=== PATIENT | female | born 1965 | race Caucasian/White ===

== ENCOUNTER 2023-01-28 11:08 | Outpatient (CLI) | payer OTHER, SELFPAY ==
--- NOTE | 2023-01-28 08:45 | DI.RAD_ITS ---
Exam(s) XR KNEE RT 4V AP,LAT,PARAMJIT,PAT EXAM: XR KNEE RT 4V AP,LAT,PARAMJIT,PAT CLINICAL HISTORY: worsening R knee pain. TECHNIQUE: 2D digital imaging was performed. Three views. COMPARISON: CR from 02/25/2022 FINDINGS: BONES: No acute fracture is present. No bony destructive lesion is seen. JOINTS: Moderate narrowing medial femoral tibial joint space. Mild periarticular spurring noted thro ughout. Mild spurring lateral patellofemoral joint. The knee is normally aligned. No joint effusion is seen. SOFT TISSUE: Normal. IMPRESSION: Moderate degenerative changes of the medial femoral tibial joint. DATA REPOSITORY: RADIATION DOSE DELIVERED:
== END 2023-01-28 11:09 | disposition home or self-care (01) ==
LOC: DIORS 11:11
PROVIDERS: PCP Family Medicine; Referring Provider Family Medicine; Visit Provider Student in an Organized Health Care Education/Training Program
DX: M25.561 Pain in right knee (principal); M17.11 Unilateral primary osteoarthritis, right knee
CPT/HCPCS: 73564

== ENCOUNTER 2023-02-18 03:28 | Outpatient (CLI) | payer OTHER, SELFPAY ==
[2023-02-18 10:37] LABS: HCT 41.8 % (36.0-46.0); HGB 13.3 g/dL (11.2-15.7); MCH 28.2 pg (27.0-33.0); MCHC 31.8 % (32.0-36.0); MCV 89 fL (80-95); MPV 10.9 fL (8.0-11.0); Platelet Count 362 10^3/uL (130-400); RBC 4.72 10^6/uL (3.93-5.22); RDW 14.3 % (11.7-14.6); RDW-SD 45.8 fL; WBC 13.53 10^3/uL (4.4-10.8)
[2023-02-18 11:04] LABS: Anion Gap 6.4 mmol/L (3-11); BUN 21 mg/dL (7-18); CO2 31.6 mmol/L (21.0-32.0); CREATININE 0.9 mg/dL (0.55-1.02); Calcium 9.1 mg/dL (8.5-10.1); Chloride 100 mmol/L (98-107); Estimated GFR 73.64 (mL/min/1.73m2); Glucose 104 mg/dL (74-106); Potassium 3.3 mmol/L (3.5-5.1); Sodium 138 mmol/L (136-145)
[2023-02-18 11:09] LABS: ALT 26 U/L (14-59); AST 16 U/L (15-37); Albumin 3.6 g/dL (3.4-5.0); Alkaline Phosphatase 111 U/L (46-116); Bilirubin, Direct 0.1 mg/dL (0.0-0.2); Bilirubin, Total 0.3 mg/dL (0.2-1.0); Total Protein 7.8 g/dL (6.4-8.2)
== END 2023-02-18 03:29 | disposition home or self-care (01) ==
LOC: LBO 03:28
PROVIDERS: Physician Assistant; PCP Family Medicine; Visit Provider Student in an Organized Health Care Education/Training Program
DX: M25.561 Pain in right knee (principal); M17.11 Unilateral primary osteoarthritis, right knee; Z01.818 Encounter for other preprocedural examination; Z01.812 Encounter for preprocedural laboratory examination
CPT/HCPCS: 36415; 80048; 80076; 85027

== ENCOUNTER 2023-02-18 10:43 | Outpatient (CLI) | payer OTHER, SELFPAY ==
--- NOTE | 2023-02-18 08:45 | DI.RAD_ITS ---
Exam(s) XR STANDING ALIGNMENT EXAM: XR STANDING ALIGNMENT CLINICAL HISTORY: TKR Planning. TECHNIQUE: 2D digital imaging was performed. COMPARISON: CR from 02/25/2022 CR XR KNEE RT 4V AP,LAT,PARAMJIT,PAT from 01/28/2023 FINDINGS: 3 views There is moderate narrowing of the medial compartment of the right knee. Medial compartment of the l eft knee appears unremarkable as do the lateral compartments of both knees. Hips appear un remarkabl e. Ankles unremarkable. Bone density normal. No osseous lesions. IMPRESSION: Moderate narrowing of the medial compartment of the right knee noted. DATA REPOSITORY: RADIATION DOSE DELIVERED:
== END 2023-02-18 10:44 | disposition home or self-care (01) ==
LOC: DIORS 10:44
PROVIDERS: PCP Family Medicine; Referring Provider Family Medicine; Visit Provider Physician Assistant
DX: M17.11 Unilateral primary osteoarthritis, right knee (principal); M25.561 Pain in right knee
CPT/HCPCS: 77073

== ENCOUNTER 2023-02-23 08:21 | Day surgery (SDC) | payer OTHER, SELFPAY ==
[2023-02-23] VITALS (10 sets, daily range): BP systolic 109–138; BP diastolic 52–73; PULSE 72–83; RESP 10–19; TEMP 36.1–36.5; O2SAT 94–98; BMI 45.1
--- NOTE | 2023-02-23 07:22 | W.PM.DSUDISC ---
Date of service: 02/23/23 Time of Service: 07:29 Discharge Plan Disposition Patient Disposition: Home Condition: Good Discharge Details Reason For Visit: Right knee DJD Attending Provider: Franck Vora Primary Care Provider: Cindy Collins Home Meds and New Rx's Prescriptions: New celecoxib [Celebrex] 200 mg capsule 200 mg PO BID PRNQty: 60 0RF Rx Instructions: Take one tablet twice daily for pain and inflammation aspirin 81 mg tablet,delayed release (DR/EC) 81 mg PO BID 30 Days Qty: 60 0RF acetaminophen 500 mg tablet 1,000 mg PO Q8H PRN Qty: 90 0RF Rx Instructions: Take two tablets up to every 8 hours as needed for pain pantoprazole 40 mg tablet,delayed release (DR/EC) 40 mg PO DAILY 30 Days Qty: 30 0RF dexamethasone 4 mg tablet 4 mg PO DAILY Qty: 2 0RF Rx Instructions: Take one tablet once daily for two days docusate sodium [Colace] 100 mg capsule 100 mg PO BID Qty: 30 0RF oxycodone 5 mg tablet 5 mg PO Q4H PRNQty: 18 0RF Rx Instructions: Take one tablet up to every 4 hours as needed for severe postoperative pain Continued albuterol 90 mcg/actuation aerosol 90 mcg inhalation DIRECTED cetirizine 10 mg tablet 10 mg PO DAILY PRN cholecalciferol (vitamin D3) 50 mcg (2,000 unit) capsule 50 mcg PO DAILY cyanocobalamin (vitamin B-12) 1,000 mcg tablet 1,000 mcg PO DAILY famotidine 20 mg tablet 20 mg PO DAILY losartan 100 mg tablet 100 mg PO DAILY triamterene-hydrochlorothiazid 37.5-25 mg tablet 1 tab PO DAILY Discharge Instructions Additional Instructions: Total Knee Discharge Instructions Activity: The most important activity is to walk and to work on gentle motion (both flexion and extension). You should try to take short walks a few times a day. It is important that when resting you work on keeping the knee straight. Avoid putting a pillow behind the knee as this will encourage flexion. Work on range of motion exercises as provided by Physical Therapy. - Start outpatient physical therapy within 2 weeks. - You should wear the MAKAYLA hose on both legs for 2 weeks. You may remove these at night. You may also use any compression sock in place of the MAKAYLA hose. - Utilize [employer] to review exercises, see videos on exercises and obtain basic information pertaining to your surgery and your recovery. Dressing: Remove the Abran wrap by 2 days after your surgery and put on the MAKAYLA stocking given to you from the hospital. Keep the surgical dressing (underneath the ABRAN wrap) in place for at least one week. After the first week it may be removed and replaced with light gauze and tape or nothing. The wound and dressing may get wet after 3 days but avoid soaking the dressing or otherwise it will need to be changed. Many people prefer covering the dressing with cling wrap (saran wrap) to minimize it from getting soaked. If it gets wet, just pat dry. If it starts to peel off then it will need to be changed. Medications: - You should take Tylenol and anti-inflammatory Celebrex as your primary pain control medications. If the Celebrex is too expensive or not covered, please call the office for another alternative (Advil/Ibuprofen or Naproxen/Aleve) - You have been prescribed a stronger pain medication Oxycodone for breakthrough pain, take as needed as prescribed. - You have also been prescribed a stomach acid reduction agent Pantoprozole to help reduce stomach acid and reflux. - You have been prescribed Gabapentin to take at night for restlessness and nerve pain. - You will be taking Aspirin 81mg twice a day for DVT prevention unless instructed otherwise. - You have also been prescribed Decadron to take to control post-operative nausea and pain. You will start this tomorrow. - If you have constipation you should take Colace (which has been prescribed) or Miralax (which is available [id number]). It takes most people 3-4 days to have a bowel movement. Follow-up: 2 weeks If you have any acute concerns or questions, please do not hesitate to contact the office at [phone]. You may contact Dr. Vora with any questions after hours through the hospital at [phone] or on his cell phone at [phone]. Stand Alone Forms: Anesthesia Discharge Inst., Galo.Nerve Block Instructions, Amparo Kraus ([facility]) Referrals: Franck Vora MD [ [facility] STAFF PHYSICIAN] - Equipment/Supplies: Walker Activity:: Elevate Remove Dressings/Wound Care:: Do Not Remove Shower/Bathe:: Cover Diet:: As Tolerated Discharge Orders Discharge Orders: Discharge Order (Routine); Ordered 02/23/23 Ordered By: Franck Vora
[2023-02-23] MEDS: Celecoxib 200 MG CAP 400 MG PO (09:20)
[2023-02-23] MEDS: Gabapentin 300 MG CAP PO (09:20)
[2023-02-23] MEDS: Acetaminophen 500 MG TAB 1000 MG PO (09:20)
--- NOTE | 2023-02-23 09:44 | ANES.PREOP_ITS ---
General Info Date of Service Date Performed: 02/23/23 Height: 5 ft 2 in Weight: 112.037 kg Body Mass Index (BMI): 45.1 Surgical Procedure: Operation Date: 02/23/23 11:25 Proposed Procedure Side Surgeon p Knee Total Arthroplasty, Cementless CR Right Franck Vora MD Meds Allergies and Home Medications Allergies Allergy/AdvReac Type Severity Reaction Status Date / Time corn Allergy skin Verified 02/23/23 09:03 irritation egg Allergy skin Verified 02/23/23 09:03 irritation Latex, Natural Rubber Allergy rash Verified 02/23/23 09:03 shellfish derived Allergy Hives Verified 02/23/23 09:03 spinach Allergy Verified 02/23/23 09:03 strawberry Allergy Verified 02/23/23 09:03 green beans Allergy Other (See Uncoded 02/23/23 09:03 Comment) erythromycin AdvReac Severe Other (See Uncoded 02/23/23 09:03 Comment) trazodone AdvReac Intermediate irritabilit Uncoded 02/23/23 09:03 y Home Medication Medication Instructions Recorded albuterol 90 mcg/actuation aerosol 90 mcg inhalation DIRECTED 11/26/22 inhaler cetirizine 10 mg tablet 10 mg PO DAILY PRN 11/26/22 cholecalciferol (vitamin D3) 50 50 mcg PO DAILY 11/26/22 mcg (2,000 unit) capsule cyanocobalamin (vitamin B-12) 1,000 mcg PO DAILY 11/26/22 1,000 mcg tablet famotidine 20 mg tablet 20 mg PO DAILY 11/26/22 losartan 100 mg tablet 100 mg PO DAILY 11/26/22 triamterene 37.5 1 tab PO DAILY 11/26/22 mg-hydrochlorothiazide 25 mg tablet acetaminophen 500 mg tablet 1,000 mg PO Q8H PRN pain #90 tabs 02/23/23 aspirin 81 mg tablet,delayed 81 mg PO BID 30 days #60 tabs 02/23/23 release celecoxib 200 mg capsule (Celebrex) 200 mg PO BID PRN #60 caps 02/23/23 dexamethasone 4 mg tablet 4 mg PO DAILY #2 tabs 02/23/23 docusate sodium 100 mg capsule 100 mg PO BID #30 caps 02/23/23 (Colace) oxycodone 5 mg tablet 5 mg PO Q4H PRN #18 tabs 02/23/23 pantoprazole 40 mg tablet,delayed 40 mg PO DAILY 30 days #30 tabs 02/23/23 release Current Visit Medications: Current Medications Generic Name Dose Route Start Last Admin Trade Name Fatou PRN Reason Stop Dose Admin Acetaminophen 1,000 mg 02/23/23 06:00 02/23/23 09:20 Acetaminophen 500 Mg Tab PO 02/23/23 18:00 1,000 mg PREOP CARRIE Administration Celecoxib 400 mg 02/23/23 06:00 02/23/23 09:20 Celecoxib 200 Mg Cap PO 02/23/23 18:00 400 mg PREOP CARRIE Administration Docusate Sodium 100 mg 02/23/23 07:17 Docusate Sodium 100 Mg Cap PO BID PRN PRN Constipation Gabapentin 300 mg 02/23/23 06:00 02/23/23 09:20 Gabapentin 300 Mg Cap PO 02/23/23 18:00 300 mg PREOP CARRIE Administration Hydromorphone HCl 0.5 mg 02/23/23 07:17 Hydromorphone 2 Mg/Ml Syr IVP Q2H PRN PRN Tranexamic Acid 1,000 mg/ 60 mls @ 360 mls/hr 02/23/23 06:00 Sodium Chloride IVPB 02/23/23 18:00 PREOP CARRIE Ringer's Solution 1,000 mls @ 80 mls/hr 02/23/23 06:00 IV 03/24/23 23:59 INFUSION CARRIE Cefazolin Sodium/Dextrose 2 gm in 50 mls @ 100 mls/hr 02/23/23 06:00 Ancef Duplex IVPB 02/23/23 16:00 PREOP CARRIE IV Miscellaneous Supplies 1 each 02/23/23 06:00 Iv Access IV 03/24/23 23:59 DIRECTED CARRIE Oxycodone HCl 0 mg 02/23/23 07:17 Oxycodone 5 Mg Tab PO Q3H PRN PRN Pain Sodium Chloride 0 ml 02/23/23 06:00 Normal Saline Flush 10 Ml Syr IV 03/24/23 23:59 PRN PRN Sodium Chloride 0 ml 02/23/23 06:00 Normal Saline 10 Ml Vial IJ 03/24/23 23:59 DIRECTED PRN Sterile Water 0 ml 02/23/23 06:00 Water,Injection,Sterile 10 Ml Vial IJ 03/24/23 23:59 DIRECTED PRN PFSH Active Problems Active Problems: Problem Status Onset Code Hypertension I10 Lung nodule R91.1 Localized osteoarthritis of right knee M17.11 Medical History Medical History (Updated 02/23/23 @ 09:01 by Estela Hopkins) Autoimmune hepatitis GERD (gastroesophageal reflux disease) History of basal cell carcinoma History of skin cancer Seborrheic dermatitis Thoracic outlet syndrome Medical History Comments:: per preop screening: Per pt. states she has had a hard time with anesthesia taking, second had a hard time taking, and came out very fast Surgical History Surgical History (Updated 02/23/23 @ 09:01 by Estela Hopkins) Hx of section x2 1991, 1997 Hx of colonoscopy Tobacco Smoking/Tobacco Use Status: Never Alcohol Alcohol Intake: current Alcohol intake frequency: a few times a month Substance Use Substance use: Never Substance use type: does not use Vital Signs and Lab Results Vital Signs Most Recent Vital Signs in EMR: Most Recent Vital Signs Temp Pulse Resp BP Pulse Ox 36.3 C L 83 16 127/69 95 02/23/23 08:40 02/23/23 08:40 02/23/23 08:40 02/23/23 08:40 02/23/23 08:40 Lab Results Blood Type / Crossmatch: No Data to Display Complete Blood Count: White Blood Count 13.53 10^3/uL (4.4-10.8) H 02/18/23 10:27 Red Blood Count 4.72 10^6/uL (3.93-5.22) 02/18/23 10:27 Hemoglobin 13.3 g/dL (11.2-15.7) 02/18/23 10:27 Hematocrit 41.8 % (36.0-46.0) 02/18/23 10:27 Platelet Count 362 10^3/uL (130-400) 02/18/23 10:27 Complete Metabolic Panel: Sodium 138 mmol/L (136-145) 02/18/23 10:27 Potassium 3.3 mmol/L (3.5-5.1) L 02/18/23 10:27 Chloride 100 mmol/L (98-107) 02/18/23 10:27 Carbon Dioxide 31.6 mmol/L (21.0-32.0) 02/18/23 10:27 BUN 21 mg/dL (7-18) H 02/18/23 10:27 Creatinine 0.9 mg/dL (0.55-1.02) 02/18/23 10:27 Est GFR (CKD-EPI 2020) 73.64 (mL/min/1.73m2) 02/18/23 10:27 Calcium 9.1 mg/dL (8.5-10.1) 02/18/23 10:27 Albumin 3.6 g/dL (3.4-5.0) 02/18/23 10:27 Glucose 104 mg/dL (74-106) 02/18/23 10:27 Liver Function Panel: Alanine Aminotransferase (ALT/SGPT) 26 U/L (14-59) 02/18/23 10: 27 Aspartate Amino Transf (AST/SGOT) 16 U/L (15-37) 02/18/23 10:27 Coagulation Panel: No Data to Display Cardiac Panel: No Data to Display Arterial Blood Gas: No Data to Display Venous Blood Gas: No Data to Display Pancreas Panel: No Data to Display Thyroid Panel: No Data to Display Infectious Disease: No Data to Display Blood Cultures: No Data to Display Toxicology Panel: No Data to Display Anesthesia Assessment and Plan Anesthesia History Personal History: Other Family History: No Family History of Anesthesia Complications Exercise Tolerance Exercise Tolerance: Metabolic Equivalents>4 Pertinent Negatives Pertinent Negatives: No Symptoms of GERD and No Major Cardiovascular Symptoms or Complaints Cardiac & Pulmonary Exam Cardiac Exam: Normal S1/S2 Heart Sounds Pulmonary Exam: Clear Bilateral Breath Sounds Implantable Cardiac Device Does patient have a Pacemaker or an ICD?: No Airway Exam Known Difficult Airway: No Mallampati Class: 1 Mouth Opening: Normal (> 3cm) Thyromental Distance: Greater than 3 cm Neck Range of Motion: Full ROM Neck Circumference: Normal Teeth Condition: Normal Dentition ASA Classification ASA Score: ASA 3 Emergency Case?: No NPO Status NPO Status: NPO Clears >2 hours, Solids >8 hours Anesthesia Plan Resuscitation Status: Full Code Anesthesia Technique: Spinal Anesthesia Airway Planned: Natural Airway Pain Management: Surgeon and patient request nerve block Monitors Used: Standard Monitors
[2023-02-23] MEDS: Lactated Ringers 1,000 ML 80 ML IV (09:50)
[2023-02-23] MEDS: ceFAZolin 2 GM/50 ML BAG IVPB (10:19)
--- NOTE | 2023-02-23 10:47 | W.ANESNERVE ---
Nerve Block Single Injection Procedure Date and Time Date Performed: 02/23/23 Procedure Start: 10:10 Location Where Procedure Performed Procedure Location: Day Surgery Unit Reason Performed: Postoperative Analgesia Requesting Provider: Franck Vora Timeout Performed Timeout Performed: Yes Monitoring Used ECG, Blood Pressure, SpO2 and See EMR for corresponding vital signs Sterility Sterility: Hand Hygiene, Surgical Cap, Surgical Mask, Sterile Gloves and Chlorhexidine Sedation Given During Procedure Sedation Given (Indicate Dose Given): No Sedation given Patient Mental Status Patient Mental Status: Awake Nerve Block 1st Nerve Block: Laterality: Right Block Type: Adductor Canal Ultrasound Image Saved?: Yes Needle / Catheter Used: 120mm SonoPlex II Local Anesthetic Bolus (Indicate Dose Given): Lidocaine used for local infiltration of skin, Injected in 3-5ml increments after negative blood aspiration and Bupivacaine 0.25% Dose:: 20ml Additives (Indicate Dose Given): None Ultrasound: Sterile probe cover and gel used Nerve Stimulator: Not Used Paresthesia: None Procedure Tolerated: No Complications and Patient tolerated well Procedure Outcome: Successful Performed By: Rafa Will
--- NOTE | 2023-02-23 12:30 | ROE_ITS ---
Date of service: 02/23/23 Time of Service: 12:00 Operative Note Operative Note DATE OF PROCEDURE: 02/23/23 PRE-OP DIAGNOSIS: Right Knee Osteoarthritis POST-OP DIAGNOSIS: same PROCEDURE: Right Total Knee Replacement with Intraoperative Navigation SURGEON: Franck Vora ANESTHESIA TYPE: Spinal Refer to Anesthesia Record ESTIMATED BLOOD LOSS: 50 PATHOLOGY: none sent TOURNIQUET TIME: 0 COMPLICATIONS: None Patient was transported to: PACU Patient's condition: stable Implants: 1. Depuy Attune Cementless Cruciate Retaining Femoral Component, Size 5 2. Depuy Attune Cementless Fixed Platform Tibial Component, Size 4 3. Depuy Attune 5x5 CR/FB Poly 4. Depuy Attune Patellar Component, Size 35 Indications: I have seen Martita in clinic for symptoms of RIGHT knee arthritis, confirmed with radiographic findings. Martita has exhausted nonoperative methods and was having significant limitations in daily function and desired better function and less pain. I discussed the technical details of a knee replacement. I explained the risks of the procedure to include, but not limited to, bleeding, infection, pain, stiffness, fracture, damage to nerves and vessels, damage to muscles and tendons, loosening, need for repeat procedure, blood clot and cardiopulmonary demise. Despite these risks, she elected to proceed. Findings: There was significant signs of arthritis throughout the knee. Procedure Description: Martita was greeted in the preoperative holding area where the correct side was identified and marked. The consent was reviewed with the patient and signed. The history and physical was updated. All questions were answered. Preoperative mediacations were administered: Acetaminophen 1000mg, Celebrex 400mg, and Gabapentin 300mg. An adductor canal block was then administered by the anesthesia team in the PACU. Martita was taken back to the operating room. A spinal anesthestic was then administered. The patient was placed into the supine position on the operating room table. A nonsterile tourniquet was placed high onto the leg. Posts were placed for positioning during the procedure. All bony prominences were well padded. Prophylactic antibiotics in the form of Cefazolin were administered. 1g of Tranxemic Acid was given intravenously within 30 minutes of incision. The right leg was then prepped with Chloraprep and draped in a standard fashion with impervious stockinette. A second prep with Chloraprep was performed prior to application of Iodine impregnated skin protection. A timeout to confirm correct identity, side and site, procedure, allergies, anesthesia, and medical concerns was performed. With the knee in some flexion, a midline incision was made overlying the knee. Full thickness skin flaps were raised once the extensor mechanism was encountered. These were raised medially and laterally. Any bleeding was controlled with electrocautery. Once the extensor mechanism was fully exposed, a medial parapatellar arthrotomy was performed in a flexed position. All bleeding from the arthrotomy and the geniculate arteries was coagulated. A medial subperiosteal peel was performed with electrocautery to the midcoronal plane. The fat pad was removed while keeping the patellar tendon protected. The anterior distal femur synovium was removed for later visualization. The ACL and PCL were resected and the anterior horn of the lateral meniscus was transected. The knee was then flexed with the patella everted. Large osteophytes from the tibia were removed. Large osteophytes from the femur were removed. A single starting pin was then placed 1cm anterior to the PCL insertion and the notch in the direction of the femoral head. The OrthoAlign device was applied over the pin. It was oriented to be in line with the epicondylar axis and the trochlear groove. It was then pinned into place. The navigation computer was then turned on and calibrated. The distal femur cut was set at 0 degrees varus/valgus and 3 degrees flexion. The distal femur cutting guide then was positioned for a 9mm cut. The distal femur was cut with an oscillating saw while protecting the soft tissues. The tibia was then addressed. The OrthoAlign device was placed over the tibial tubercle and medial tibia and secured into position. Once again, OrthoAlign was calibrated and then set for a 2 degrees varus cut and 5 degrees of posterior slope. With this locked into position, the cut thickness stylus was used to assess cut thickness. The medial side, most involved side, was set for a 4mm cut. This was then held in position and pinned into place with 2 additional pins and a cross pin for stability. The medial and lateral collateral ligaments were protected and the cut was performed. With this completed, it was assessed and noted to be of appropriate dimensions. The guide and OrthoAlign was removed. A spacer block was inserted and the knee was brought into extension to ensure enough space was present. The femur was then sized as a size 5. The Orthoalign gap balancing device was then placed in extension. This was used to ensure that the ligaments were properly balanced with up to 2 to 3 mm laxity laterally compared medially. The extension gap was measured as 15mm. The knee was then brought into 90 degrees of flexion and the ligament litigation examiner was once again placed. Under the same amount of force the flexion gap was measured. The Attune specific jig was placed and the flexion gap was made to match the extension gap. The 4-in-1 cutting guide was the placed. An china wing was used to confirm appropriate position of the anterior cut to avoid notching. This cutting guide was ensured to be flush on the cut surface and then pinned into place with headed pins. While protecting the soft tissues, quad tendon, and collateral ligaments, the anterior and posterior cuts were performed with a saw. There was a slight notch into the anterior cortex laterally which was smoothed with a rongeur and a rasp. The central two pins were removed and the posterior and anterior chamfers were cut next. The notch-cutting guide was placed. This was pinned to lateralize the femoral component as much as possible while keeping it flush on the cut surface. This was then pinned into position. A saw was used to make the notch cut. A rasp smoothed the cut surfaces. The medial and lateral menisci were removed. A trial femoral component was then inserted, impacted down to the cut surfaces, and the lug holes were drilled. A provisional trial tibial component was placed and the knee was brought through range of motion. There was noted to be excellent extension and flexion. There was no significant instability. The patella was tracking without thumbs. A size 5mm polyethylene component provided the best range of motion and stability with less than 2mm gapping with medial and lateral stress and full extension without significant hyperextension. The tibial cut surface was fully exposed. The tibia was then sized as a 4. The tibia had been previously marked during trialing to correspond to the center of the tibial component to help with rotation. The trial was aligned to this yrn, approximately rotated to the medial 1/3rd of the tibial tubercle. The trial was pinned into place. The tibia was prepared with a reamer and a keel punch and lug holes. The knee was then brought into extension and the patella was measured as 24mm. Using the patellar clamp and cut guide, this was resected to a flat surface with at least 13mm of thickness remaining. The size 35 patella fit the best. This was oriented and then clamped into position. The lugs were drilled. The trial components were removed. The final components were opened on the back table. The periosteal and capsular tissues, especially posteriorly, around the knee were then systematically injected with a periarticular cocktail consisting of 246mg of Ropivacaine, 0.5mg of Epinephrine, 0.08mg of Clonidine, and 30mg of Ketorolac, diluted to 100cc. On the back table, with the implants opened, the cement was mixed. One batch of high viscosity cement was prepared with vacuum assistance. After the cement was ready a small amount was placed on the cut surface of the patella and the patellar button was clamped into position and held. While the cement was hardening, the cementless knee components were placed. Starting with the tibial component, the tibia was subluxed anteriorly and the lug holes of the component were lined up. The tibia was then impacted with an impactor and mallet until the tibial component was in contact with the tibia. The final polyethylene component was inserted. Then, the femoral component was inserted. The lug holes were aligned and the component was impacted into position. The knee was irrigated with Surgiphor Betadine solution. This was allowed to sit in the knee for 3 minutes and then it was thoroughly irrigated out with saline. After the cement had finally cured, approximately 15min, the clamp was removed from the patella and the knee was taken through range of motion. The patella was tracking with a no-thumbs technique. The capsule was then reapproximated with a No. 1 Vicryl at multiple locations. The capsule was finally closed with a No. 2 Stratafix, barbed suture. Deep tissues were then reapproximated with 0 Vicryl and 2-0 Monocryl. The skin was closed with a running 3-0 Monocryl in a subcuticular fashion. This was reinforced with skin glue. A Mepilex silver dressing was applied along with a [id number] EBEN wrap. A CryoCuff was applied. Martita was transferred to the hospital bed without difficulty an suffering no apparent complication. Martita has a good prognosis. Physical therapy will start today and without restrictions, weight-bearing as tolerated. Aspirin 81mg BID will be used for DVT prophylaxis.
--- NOTE | 2023-02-23 13:13 | W.ANESPOSTOP ---
Postoperative Evaluation Date, Time and Location Date Performed: 02/23/23 Time Performed: 13:13 Patient Location: PACU Vital Signs Most Recent Imported Vital Signs: Most Recent Vital Signs Temp Pulse Resp BP Pulse Ox 36.5 C 74 10 L 118/64 98 02/23/23 12:50 02/23/23 12:50 02/23/23 12:50 02/23/23 12:50 02/23/23 12:50 Pain Score Most Recent Pain Score: Most Recent Pain Score Pain Level 0 02/23/23 12:50 Assessment Mental Status: Awake (Alert & Oriented to Patient Baseline) Airway and Respiratory Function: Patent airway with normal (patient baseline) respiratory exam Cardiovascular Function: Hemodynamically Stable Hydration Status: Adequately Hydrated Nausea & Vomiting: No Nausea or Vomiting Pain: Pt. Denies Any Pain Peripheral Nerve Block: Regional nerve block not resolved at time of post operative discharge
[2023-02-23] MEDS: oxyCODONE 5 MG TAB PO (14:42)
--- NOTE | 2023-02-23 15:52 | IN_ITS ---
Date of service: 02/23/23 Time of Service: 15:06 PT Notes Visit Reasons: Right knee DJD Physical Therapy Day Surgery Initial Evaluation Date: 02/23/2023 Referring Doctor: JONATHAN Mishra PT Orders: PT CONSULT: S/P ortho Surgery Precautions: WBAT on the R LE with AD. 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 PMHX: Medical History? Autoimmune hepatitis GERD (gastroesophageal reflux disease) History of basal cell carcinoma Seborrheic dermatitis Thoracic outlet syndrome Social History/Home Situation: Lives with in a private home with 10 steps to enter with one rail and a wall for support on the other side. She is independent with all ADLs prior to surgery but was having increasing difficulty to manage at home due to worsening pain. Equipment Owned/DME: [facility] Subjective: Reports minimal pain in the R knee with AD. Denies headache, chest pain, and lightheadedness throughout session. Objective: General Observation: Seated on chair. EBEN wrap to R LE. Cryocuff to R knee. In NAD. Mental Status: Alert and oriented x 4 Pain: 2-3/10 pain in the R knee gentle range of motion and with ambulation ROM: Right Lower Extremity: Hip flexion WFL. Hip abduction WFL. Knee flexion 20 degrees to 95 degrees. Knee extension -20 degrees. Ankle dorsiflexion WFL. Ankle plantarflexion WFL. Left Lower Extremity: Hip flexion WFL. Hip abduction WFL. Knee flexion WFL. Ankle dorsiflexion WFL. Ankle plantarflexion WFL. Strength: Right Lower Extremity: Hip flexors 4/5. Hip abductors 4/5. Knee flexors 3-/5. Knee extensors 3-5. Ankle dorsiflexors 5/5. Ankle plantarflexors 5/5. Left Lower Extremity:Hip flexors 5/5. Hip abductors 5/5. Knee flexors 5/5. Knee extensors 5/5. Ankle dorsiflexors 5/5. Ankle plantarflexors 5/5. Sensation: Intact as to pain and light pressure in B LE Bed Mobility/Transfers: Sit to stand stand by assist Stand to sit stand by assist Bed to chair stand by assist Gait: 150 feet of level surface ambulation using front wheeled walker with standby assist. Provided minimal verbal cueing for step through gait pattern, walker management, and turning. No loss of balance. No shortness of breath. No increase in pain. Balance: Static Sitting: Normal Dynamic Sitting: Normal Static Standing: Fair Dynamic Standing: Fair Special Tests: Mobility Limitations Standardized Measure [facility] AM-PAC 6 clicks Basic Mobility Inpatient Short Form: Raw Score: 23 CMS Score: 11 to deficit NEURO RE-ED: Trained patient with correct performance of exercises below to maximize motor control, joint flexibility, soft tissue extensibility of the R knee musculature. Supine quads sets x 5 with 5 sh Supine heels lsides x 5 Supine ankle Df/PF x 10 Small range stariagt leg raise x 5 Seated marches x 5 Informed Consent/Education: Patient instructed in purpose of PT consult. Packet containing TKA exercise protocol has been given to patient. Education and training on initial set of exercises that can be done at home have been completed with patient. Assessment: Patient requires the use of a front wheel walker to maximize independence and reduce fall risk. Patient presents with clinical signs and symptoms consistent with current/admitting diagnoses that have resulted to mobility limitations, gait instability, generalized weakness, and impairment of motor control as demonstrated by the following impairment level findings: 1. Decreased strength to R knee major muscle groups 2. Impaired standing balance 3. Limitation of joint range of motion in R knee Impairments are contributing to the following functional limitations: 1. Inability to safely ambulate without assistive device 2. Increase completion time for mobility ADL performance 3. Increased fall risk Patient is assessed as a 61981 moderate complexity based on the following: History: 57-year-old female with impairment level findings, functional limitations, and past medical history as indicated above Examination: Demonstrable impairment in strength, balance, and mobility level with underlying impairments and functional limitations as documented above Presentation: Evolving Decision Makin moderate complexity Goals: N/A. PT evaluation and 1-2 treatment sessions only for functional mobility training using recommended AD and for HEP instruction. Plan of Care/Treatment Plan: N/A. PT evaluation and 1-2 treatment session only for functional mobility training using recommended AD and for HEP instruction. DISCHARGE RECOMMENDATIONS: Home when medically cleared by orthopedic surgeon. Recommend outpatient PT services in order to optimize functional mobility outcomes and facilitate return to independent community ambulation without an assistive device. TREATMENT CODE/TIME: 9716 2 x 20 minutes, 53428 x 19 minutes beginning at 15:06 PM. Thank you for the opportunity to participate in the care of this patient. Smita Garcia PT, DPT, CLT [facility] [place], [place]
== END 2023-02-23 16:40 | disposition home or self-care (01) ==
PROVIDERS: PCP Family Medicine; Visit Provider Student in an Organized Health Care Education/Training Program
PROC: (CPT 27447; principal; 2023-02-23 11:15)
DX: M17.11 Unilateral primary osteoarthritis, right knee (principal); I10 Essential (primary) hypertension; K21.9 Gastro-esophageal reflux disease without esophagitis
CPT/HCPCS: 27447; 20985; 76942; 97112; 97162; J0690; J1100; J2250; J2405

== ENCOUNTER 2023-03-08 13:41 | Outpatient (CLI) | payer OTHER, SELFPAY ==
--- NOTE | 2023-03-08 13:00 | DI.RAD_ITS ---
Exam(s) XR KNEE RT 1V XR STANDING ALIGNMENT EXAM: XR STANDING ALIGNMENT CLINICAL HISTORY: 1ST POST OP R TKA. TECHNIQUE: 2D digital imaging was performed. Five images were obtained. COMPARISON: CR XR STANDING ALIGNMENT from 02/18/2023 FINDINGS: BONES: The hips are well maintained. Since the prior examination the patient has undergone a right t otal knee replacement. The orthopedic hardware appears in good position. The bones are intact. The re is soft tissue swelling around the right knee. The left knee is well maintained. The ankles are well maintained.There is no significant leg length discrepancy. SOFT TISSUE: Normal. IMPRESSION: 1. Right total knee replacement. 2. Unremarkable left knee. DATA REPOSITORY: RADIATION DOSE DELIVERED:
== END 2023-03-08 13:42 | disposition home or self-care (01) ==
LOC: DIORS 13:41
PROVIDERS: PCP Family Medicine; Visit Provider Physician Assistant
DX: Z96.651 Presence of right artificial knee joint (principal); Z47.1 Aftercare following joint replacement surgery
CPT/HCPCS: 73560; 77073

== ENCOUNTER 2023-05-11 10:16 | Day surgery (SDC) | payer OTHER, SELFPAY ==
[2023-05-11] VITALS (7 sets, daily range): BP systolic 125–135; BP diastolic 57–70; PULSE 72–81; RESP 12–21; TEMP 36.1–36.6; O2SAT 13–98; BMI 43.7
[2023-05-11] MEDS: Lactated Ringers 1,000 ML 80 ML IV (11:02)
--- NOTE | 2023-05-11 12:11 | W.ANESPRE ---
General Info Date of Service Date Performed: 05/11/23 Height: 5 ft 2 in Weight: 108.5 kg Body Mass Index (BMI): 43.7 Surgical Procedure: Operation Date: 05/11/23 13:25 Proposed Procedure Side Surgeon p Knee Manipulation of Knee Right Franck Vora MD Meds Allergies and Home Medications Allergies Allergy/AdvReac Type Severity Reaction Status Date / Time corn Allergy skin Verified 05/11/23 10:41 irritation egg Allergy skin Verified 05/11/23 10:41 irritation Latex, Natural Rubber Allergy rash Verified 05/11/23 10:41 shellfish derived Allergy Hives Verified 05/11/23 10:41 spinach Allergy Verified 05/11/23 10:41 strawberry Allergy Hives Verified 05/11/23 10:41 green beans Allergy Other (See Uncoded 05/11/23 10:41 Comment) erythromycin AdvReac Severe Other (See Uncoded 05/11/23 10:41 Comment) trazodone AdvReac Intermediate irritabilit Uncoded 05/11/23 10:41 y Home Medication Medication Instructions Recorded albuterol 90 mcg/actuation aerosol 90 mcg inhalation DIRECTED 11/26/22 inhaler cetirizine 10 mg tablet 10 mg PO DAILY PRN 11/26/22 cholecalciferol (vitamin D3) 50 50 mcg PO DAILY 11/26/22 mcg (2,000 unit) capsule cyanocobalamin (vitamin B-12) 1,000 mcg PO DAILY 11/26/22 1,000 mcg tablet famotidine 20 mg tablet 20 mg PO DAILY 11/26/22 losartan 100 mg tablet 100 mg PO DAILY 11/26/22 triamterene 37.5 1 tab PO DAILY 11/26/22 mg-hydrochlorothiazide 25 mg tablet acetaminophen 500 mg tablet 1,000 mg PO Q8H PRN pain #90 tabs 02/23/23 diazepam 5 mg tablet 5 mg PO BID PRN muscle spasm #20 03/22/23 tabs celecoxib 200 mg capsule (Celebrex) 200 mg PO DAILY PRN pain, 05/03/23 inflammation #60 caps multivitamin 1 tab PO DAILY 05/10/23 Current Visit Medications: Current Medications Generic Name Dose Route Start Last Admin Trade Name Freq PRN Reason Stop Dose Admin Ringer's Solution 1,000 mls @ 80 mls/hr 05/11/23 06:00 05/11/23 11:02 IV 06/09/23 23:59 80 mls/hr INFUSION CARRIE Administration IV Miscellaneous Supplies 1 each 05/11/23 06:00 Iv Access IV 06/09/23 23:59 DIRECTED CARRIE Sodium Chloride 0 ml 05/11/23 06:00 Normal Saline Flush 10 Ml Syr IV 06/09/23 23:59 PRN PRN Sodium Chloride 0 ml 05/11/23 06:00 Normal Saline 10 Ml Vial IJ 06/09/23 23:59 DIRECTED PRN Sterile Water 0 ml 05/11/23 06:00 Water,Injection,Sterile 10 Ml Vial IJ 06/09/23 23:59 DIRECTED PRN PFSH Active Problems Active Problems: Problem Status Onset Code Hypertension I10 Lung nodule R91.1 History of total right knee replacement 02/23/23 Z96.651 Arthrofibrosis of total knee arthroplasty T84.82XA Medical History Medical History Autoimmune hepatitis GERD (gastroesophageal reflux disease) History of basal cell carcinoma History of skin cancer Seborrheic dermatitis Thoracic outlet syndrome Medical History Comments:: per preop screening: Per pt. states she has had a hard time with anesthesia taking, second had a hard time taking, and came out very fast Surgical History Surgical History (Updated 05/11/23 @ 10:40 by Nevin Medley) History of knee replacement Hx of section x2 1991, 1997 Hx of colonoscopy Tobacco Smoking/Tobacco Use Status: Never Alcohol Alcohol Intake: current Alcohol intake frequency: a few times a month Substance Use Substance use: Never Substance use type: does not use Vital Signs and Lab Results Vital Signs Most Recent Vital Signs in EMR: Most Recent Vital Signs Temp Pulse Resp BP Pulse Ox 36.2 C L 76 16 125/70 98 05/11/23 10:20 05/11/23 10:20 05/11/23 10:20 05/11/23 10:20 05/11/23 10:20 Lab Results Blood Type / Crossmatch: No Data to Display Complete Blood Count: No Data to Display Complete Metabolic Panel: No Data to Display Liver Function Panel: No Data to Display Coagulation Panel: No Data to Display Cardiac Panel: No Data to Display Arterial Blood Gas: No Data to Display Venous Blood Gas: No Data to Display Pancreas Panel: No Data to Display Thyroid Panel: No Data to Display Infectious Disease: No Data to Display Blood Cultures: No Data to Display Toxicology Panel: No Data to Display Anesthesia Assessment and Plan Anesthesia History Personal History: Awareness Under Anesthesia and Other Family History: No Family History of Anesthesia Complications Exercise Tolerance Exercise Tolerance: Metabolic Equivalents>4 Pertinent Negatives Pertinent Negatives: No Symptoms of GERD (Takes Pepcid) Cardiac & Pulmonary Exam Cardiac Exam: Normal S1/S2 Heart Sounds Pulmonary Exam: Clear Bilateral Breath Sounds Implantable Cardiac Device Does patient have a Pacemaker or an ICD?: No Airway Exam Known Difficult Airway: No Mallampati Class: 1 Mouth Opening: Normal (> 3cm) Thyromental Distance: Greater than 3 cm Neck Range of Motion: Full ROM Neck Circumference: Normal Teeth Condition: Normal Dentition ASA Classification ASA Score: ASA 3 Emergency Case?: No NPO Status NPO Status: NPO Clears >2 hours, Solids >8 hours Anesthesia Plan Resuscitation Status: Full Code Anesthesia Technique: General Anesthesia Airway Planned: Natural Airway Monitors Used: Standard Monitors
[2023-05-11] MEDS: Bupivacaine 0.5% Pres-Free 30 ML VIAL (13:44)
--- NOTE | 2023-05-11 13:49 | W.PM.DSUDISC ---
Date of service: 05/11/23 Time of Service: 13:49 Discharge Plan Disposition Patient Disposition: Home Condition: Good Discharge Details Reason For Visit: Right Knee Arthrofibrosis Attending Provider: Franck Vora Primary Care Provider: Cindy Collins Home Meds and New Rx's Prescriptions: New oxycodone 5 mg tablet 5 mg PO Q6H PRN (Reason: pain) Qty: 12 0RF Continued albuterol 90 mcg/actuation aerosol 90 mcg inhalation DIRECTED cetirizine 10 mg tablet 10 mg PO DAILY PRN cholecalciferol (vitamin D3) 50 mcg (2,000 unit) capsule 50 mcg PO DAILY cyanocobalamin (vitamin B-12) 1,000 mcg tablet 1,000 mcg PO DAILY famotidine 20 mg tablet 20 mg PO DAILY losartan 100 mg tablet 100 mg PO DAILY triamterene-hydrochlorothiazid 37.5-25 mg tablet 1 tab PO DAILY multivitamin Tablet 1 tab PO DAILY celecoxib [Celebrex] 200 mg capsule 200 mg PO DAILY PRN (Reason: pain, inflammation) Qty: 60 0RF Rx Instructions: Take one tablet once daily for pain and inflammation acetaminophen 500 mg tablet 1,000 mg PO Q8H PRN Qty: 60 0RF Rx Instructions: Take two tablets up to every 8 hours as needed for pain diazepam 5 mg tablet 5 mg PO BID PRN (Reason: muscle spasm) Qty: 10 0RF Discharge Instructions Additional Instructions: Knee Manipulation Discharge Instructions Activity: You should begin moving as soon as possible. You may work on flexion but also equally maintain extension. You may bear weight as tolerated, using crutches only for support/comfort. You should apply ice to help with swelling and elevate when possible (especially in the first few days). Dressings: The knee bandaid may be removed later tonight. You may shower and get the wound wet at that time. Medications: - Rarely does this require any stronger pain medications,but it is important to have good pain control if needed for range of motion exercises. For this, Oxycodone has been prescribed. - Recommend to take up to 1000mg of Acetaminophen (Tylenol) every 8 hours and 200mg of Celebrex twice a day as needed. Follow-up: 7-[address] Vora's team. Tomorrow with PT. Referrals: Franck Vora MD [ [facility] STAFF PHYSICIAN] - Equipment/Supplies: Walker Activity:: Activity as Tolerated Remove Dressings/Wound Care:: 24 hours Shower/Bathe:: 24 hours Diet:: As Tolerated Discharge Orders Discharge Orders: Discharge Order (Routine); Ordered 05/11/23 Ordered By: Franck Vora DS: Diagnosis Discharge Diagnosis (1) Arthrofibrosis of total knee arthroplasty: Status: Acute
--- NOTE | 2023-05-11 14:06 | W.ANESPOSTOP ---
Postoperative Evaluation Date, Time and Location Date Performed: 05/11/23 Time Performed: 14:06 Patient Location: PACU Vital Signs Most Recent Imported Vital Signs: Most Recent Vital Signs Temp Pulse Resp BP Pulse Ox 36.6 C 80 21 125/60 19 L 05/11/23 13:52 05/11/23 13:52 05/11/23 13:52 05/11/23 13:52 05/11/23 13:52 Pain Score Most Recent Pain Score: Most Recent Pain Score Pain Level 0 05/11/23 13:52 Assessment Mental Status: Awake (Alert & Oriented to Patient Baseline) Airway and Respiratory Function: Patent airway with normal (patient baseline) respiratory exam Cardiovascular Function: Hemodynamically Stable Hydration Status: Adequately Hydrated Nausea & Vomiting: No Nausea or Vomiting Pain: Pain is tolerable per patient Peripheral Nerve Block: Patient did not receive a nerve block
[2023-05-11] MEDS: oxyCODONE 5 MG TAB PO (15:01)
--- NOTE | 2023-05-11 16:30 | ROE_ITS ---
Date of service: 05/11/23 Time of Service: 13:15 Operative Note Operative Note DATE OF PROCEDURE: 05/11/23 PRE-OP DIAGNOSIS: Right knee Arthrofibrosis s/p Replacement POST-OP DIAGNOSIS: same PROCEDURE: Right knee Manipulation Under Anesthesia SURGEON: Franck Vora ANESTHESIA TYPE: General:No Airway Refer to Anesthesia Record ESTIMATED BLOOD LOSS: 0 PATHOLOGY: none sent TOURNIQUET TIME: 0 COMPLICATIONS: None Patient was transported to: PACU Patient's condition: stable Indications: Martita is a 58-year-old female who is s/p knee replacement. Despite diligent work with physical therapy there has been continued stiffness. To assist with mobility, I offered a manipulation under anesthesia. I discussed the risks of the procedure to include bleeding, pain, recurrent stiffness, fracture. Despite these risks, she elects to proceed. Findings: Preoperative flexion = 85 Postoperative flexion = 115 Preoperative extension = 0 Postoperative extension = 0 Procedure Description: The patient was greeted in the preoperative holding area. Identity was confirmed and the correct side was identified and marked. The consent was reviewed the patient and signed. History and physical was updated. Martita was taken back to the operating room. The right side was identified as the correct side. A timeout was performed for safe surgery. A general anesthetic was administered. The knee was then prepped with ChloraPrep and an intra-articular injection of 10 cc of 0.5% bupivacaine was administered. Once a muscle relaxant was fully on board manipulation was performed. Pre- manipulation range of motion was noted. A gentle manipulation was performed first into flexion using a very small lever arm and adding gentle and progressive pressure to the tibia. There is audible and palpable crepitus with improvement in range of motion. This was cycled and repeated multiple times. The knee was once again manipulated with gentle and progressive pressure. Final range of motion numbers were recorded. A Band-Aid was applied to the injection site. She was awakened from anesthesia and taken to the PACU in stable condition.
== END 2023-05-11 15:47 | disposition home or self-care (01) ==
PROVIDERS: PCP Family Medicine; Visit Provider Student in an Organized Health Care Education/Training Program
PROC: (CPT 27570; principal; 2023-05-11 13:15)
DX: T84.82XA Fibrosis due to internal orthopedic prosthetic devices, implants and grafts, initial encounter (principal); Z96.651 Presence of right artificial knee joint
CPT/HCPCS: 27570; J1100; J1885; J2250; J2405

== ENCOUNTER 2023-08-16 15:21 | Outpatient (CLI) | payer OTHER, SELFPAY ==
--- NOTE | 2023-08-16 15:15 | DI.RAD_ITS ---
Exam(s) XR HIP RT COMPLETE AP PELVIS EXAM: XR HIP RT COMPLETE AP PELVIS CLINICAL HISTORY: RIGHT HIP PAIN. TECHNIQUE: 2D digital imaging was performed. COMPARISON: No exams were available for comparison FINDINGS: Two views: There is no evidence of pelvic nor hip fracture. Additional lateral view of the right hip reveals no joint space narrowing nor marginal femoral head osteophytes. Calcific densities noted adjacent to t he greater trochanter, doubtful for acute fracture. IMPRESSION: No acute fractures. DATA REPOSITORY: RADIATION DOSE DELIVERED:
== END 2023-08-16 15:22 | disposition home or self-care (01) ==
LOC: DIORS 15:21
PROVIDERS: PCP Family Medicine; Visit Provider Student in an Organized Health Care Education/Training Program
DX: M25.551 Pain in right hip (principal)
CPT/HCPCS: 73502

== ENCOUNTER 2024-03-30 16:03 | Outpatient (CLI) | payer OTHER, SELFPAY ==
--- NOTE | 2024-03-30 14:58 | DI.RAD_ITS ---
Exam(s) XR KNEE RT 3V AP,LAT,PARAMJIT EXAM: XR KNEE RT 3V AP,LAT,PARAMJIT CLINICAL HISTORY: right knee pain. TECHNIQUE: 2D digital imaging was performed. Three images were obtained. Merchant's, AP and lateral views were obtained. COMPARISON: CR XR KNEE RT 4V AP,LAT,PARAMJIT,PAT from 01/28/2023 CR XR KNEE RT 1V from 03/08/2023 CR XR STANDING ALIGNMENT from 03/08/2023 FINDINGS: BONES: There are stable post operative changes of a right total knee replacement present. No fractur e or dislocation. JOINTS: The orthopedic hardware is in good position. No evidence of hardware loosening. SOFT TISSUE: Normal. IMPRESSION: Stable right total knee replacement. DATA REPOSITORY: RADIATION DOSE DELIVERED:
== END 2024-03-30 16:04 | disposition home or self-care (01) ==
LOC: DIORS 16:03
PROVIDERS: PCP Family Medicine; Visit Provider Student in an Organized Health Care Education/Training Program
DX: Z96.651 Presence of right artificial knee joint (principal); Z47.1 Aftercare following joint replacement surgery
CPT/HCPCS: 73562

== ENCOUNTER 2024-05-10 08:02 | Day surgery (SDC) | payer OTHER, SELFPAY ==
[2024-05-10] VITALS (24 sets, daily range): BP systolic 102–148; BP diastolic 60–76; PULSE 64–83; RESP 10–27; TEMP 36.2–36.5; O2SAT 90–98; BMI 44.6
[2024-05-10] MEDS: Lactated Ringers 1,000 ML 80 ML IV (08:43)
[2024-05-10] MEDS: Acetaminophen 500 MG TAB 1000 MG PO (08:44)
[2024-05-10] MEDS: Celecoxib 200 MG CAP 400 MG PO (08:44)
--- NOTE | 2024-05-10 08:48 | W.ANESPRE ---
General Info Date of Service Date Performed: 05/10/24 Height: 5 ft 1.5 in Weight: 108.8 kg Body Mass Index (BMI): 44.6 Surgical Procedure: Operation Date: 05/10/24 09:40 Proposed Procedure Side Surgeon p Knee Arthroscopy Synovectomy Right Franck Vora MD Pre-Op Diagnosis Post-Op Diagnosis (1) History of total right knee replacement (2) Arthrofibrosis of total knee arthroplasty Meds Allergies and Home Medications Allergies Allergy/AdvReac Type Severity Reaction Status Date / Time corn Allergy skin Verified 05/10/24 08:15 irritation egg Allergy skin Verified 05/10/24 08:15 irritation Latex, Natural Rubber Allergy rash Verified 05/10/24 08:15 shellfish derived Allergy Hives Verified 05/10/24 08:15 spinach Allergy Other (See Verified 05/10/24 08:15 Comment) strawberry Allergy Hives Verified 05/10/24 08:15 green beans Allergy Other (See Uncoded 05/10/24 08:15 Comment) erythromycin AdvReac Severe Other (See Uncoded 05/10/24 08:15 Comment) trazodone AdvReac Intermediate irritabilit Uncoded 05/10/24 08:15 y Home Medication Medication Instructions Recorded albuterol 90 mcg/actuation aerosol 90 mcg inhalation DIRECTED 11/26/22 inhaler cetirizine 10 mg tablet 10 mg PO DAILY PRN 11/26/22 cholecalciferol (vitamin D3) 50 50 mcg PO DAILY 11/26/22 mcg (2,000 unit) capsule cyanocobalamin (vitamin B-12) 1,000 mcg PO DAILY 11/26/22 1,000 mcg tablet famotidine 20 mg tablet 20 mg PO DAILY 11/26/22 losartan 100 mg tablet 100 mg PO DAILY 11/26/22 triamterene 37.5 1 tab PO DAILY 11/26/22 mg-hydrochlorothiazide 25 mg tablet multivitamin 1 tab PO DAILY 05/10/23 acetaminophen 500 mg tablet 1,000 mg (2 x 500 mg) PO Q8H PRN 05/11/23 pain #60 tabs diazepam 5 mg tablet 5 mg PO BID PRN muscle spasm #10 05/11/23 tabs triamcinolone acetonide 0.1 % 1 applic topical BID PRN rash #30 07/22/23 topical cream grams cephalexin 500 mg capsule 2,000 mg (4 x 500 mg) PO ONCE #4 09/24/23 caps Current Visit Medications: Current Medications Generic Name Dose Route Start Last Admin Trade Name Fatou PRN Reason Stop Dose Admin Acetaminophen 1,000 mg 05/10/24 06:00 05/10/24 08:44 Acetaminophen 500 Mg Tab PO 06/08/24 23:59 1,000 mg PREOP CARRIE Administration Celecoxib 400 mg 05/10/24 06:00 05/10/24 08:44 Celecoxib 200 Mg Cap PO 06/08/24 23:59 400 mg PREOP CARRIE Administration Ringer's Solution 1,000 mls @ 80 mls/hr 05/10/24 06:00 05/10/24 08:43 IV 06/08/24 23:59 80 mls/hr INFUSION CARRIE Administration Cefazolin Sodium 3,000 mg/ 100 mls @ 200 mls/hr 05/10/24 06:00 Sodium Chloride IVPB 06/08/24 23:59 PREOP CARRIE Tranexamic Acid/Sodium Chloride 1,000 mg in 100 mls @ 600 mls/hr 05/10/24 06:00 IVPB 06/08/24 23:59 PREOP CARRIE IV Miscellaneous Supplies 1 each 05/10/24 06:00 Iv Access IV 06/08/24 23:59 DIRECTED CARRIE Sodium Chloride 0 ml 05/10/24 06:00 Normal Saline Flush 10 Ml Syr IV 06/08/24 23:59 PRN PRN Sodium Chloride 0 ml 05/10/24 06:00 Normal Saline 10 Ml Vial IJ 06/08/24 23:59 DIRECTED PRN Sterile Water 0 ml 05/10/24 06:00 Water,Injection,Sterile 10 Ml Vial IJ 06/08/24 23:59 DIRECTED PRN PFSH Active Problems Active Problems: Problem Status Onset Code Pes anserinus bursitis of right knee M70.51 Trochanteric bursitis, right hip M70.61 Iliotibial band syndrome of right side M76.31 Hypertension I10 Lung nodule R91.1 History of total right knee replacement 02/23/23 Z96.651 Arthrofibrosis of total knee arthroplasty T84.82XA Medical History Medical History Autoimmune hepatitis GERD (gastroesophageal reflux disease) History of basal cell carcinoma History of skin cancer Seborrheic dermatitis Thoracic outlet syndrome Medical History Comments:: per preop screening: Per pt. states she has had a hard time with anesthesia taking, second had a hard time taking, and came out very fast Surgical History Surgical History History of knee replacement Hx of section x2 1991, 1997 Hx of colonoscopy Tobacco Smoking/Tobacco Use Status: Never Alcohol Alcohol Intake: current Alcohol intake frequency: a few times a month Substance Use Substance use: Never Substance use type: does not use Vital Signs and Lab Results Vital Signs Most Recent Vital Signs in EMR: Most Recent Vital Signs Temp Pulse Resp BP Pulse Ox 36.5 C 83 16 148/67 H 95 05/10/24 08:39 05/10/24 08:39 05/10/24 08:39 05/10/24 08:39 05/10/24 08:39 Lab Results Blood Type / Crossmatch: No Data to Display Complete Blood Count: No Data to Display Complete Metabolic Panel: No Data to Display Liver Function Panel: No Data to Display Coagulation Panel: No Data to Display Cardiac Panel: No Data to Display Arterial Blood Gas: No Data to Display Venous Blood Gas: No Data to Display Pancreas Panel: No Data to Display Thyroid Panel: No Data to Display Infectious Disease: No Data to Display Blood Cultures: No Data to Display Toxicology Panel: No Data to Display Anesthesia Assessment and Plan Anesthesia History Personal History: Awareness Under Anesthesia (awoke during TKA with spinal on board) Family History: No Family History of Anesthesia Complications Exercise Tolerance Exercise Tolerance: Metabolic Equivalents>4 Pertinent Negatives Pertinent Negatives: No Symptoms of GERD (controlled with meds, took today), No Major Cardiovascular Symptoms or Complaints, No Major Pulmonary Symptoms or Complaints and No History of CVA/TIA Cardiac & Pulmonary Exam Cardiac Exam: Normal S1/S2 Heart Sounds Pulmonary Exam: Clear Bilateral Breath Sounds Implantable Cardiac Device Does patient have a Pacemaker or an ICD?: No Airway Exam Known Difficult Airway: No Mallampati Class: 1 Mouth Opening: Normal (> 3cm) Thyromental Distance: Greater than 3 cm Neck Range of Motion: Full ROM Neck Circumference: Normal Teeth Condition: Normal Dentition ASA Classification ASA Score: ASA 3 Emergency Case?: No NPO Status NPO Status: NPO Clears >2 hours, Solids >8 hours Anesthesia Plan Resuscitation Status: Full Code Anesthesia Technique: General Anesthesia Airway Planned: LMA Monitors Used: Standard Monitors and SedLine
[2024-05-10] MEDS: ceFAZolin 3,000 MG in Normal Saline 100 ML 200 MG IVPB (10:20)
--- NOTE | 2024-05-10 10:20 | W.PREOPHP ---
Assessment and Plan Assessment and plan (1) Arthrofibrosis of total knee arthroplasty: Status: Acute Assessment and plan: Martita is a 59 year old female who is s/p R TKA. SHe has struggled with range of motion and stiffness. She is been diagnosed with arthrofibrosis. I have offered arthroscopic synovectomy of the knee. I discussed this procedure with her. I reviewed the risk to include bleeding, infection, pain, continued stiffness, swelling, blood clot. Spite these risk, she elects to proceed. History of Present Illness History of Present Illness Chief Complaint: Right KNee Pain and Stiffness Narrative: Martita is a 59-year-old female who is status post right knee replacement. Unfortunate she is struggle with stiffness, lack of range of motion, and some pain. She had a few episodes of tissue rupturing within the knee which has helped out slightly but still continues to have the symptoms. She denies numbness or tingling. Denies fevers or chills. Review of Systems All systems reviewed & are unremarkable except as noted in HPI and below PFSH All Active Problems (Updated 05/10/24 @ 10:23 by JONATHAN Hollins) Pes anserinus bursitis of right knee (Acute) Trochanteric bursitis, right hip (Acute) Iliotibial band syndrome of right side (Acute) Hypertension (Chronic) Lung nodule (Acute) Arthrofibrosis of total knee arthroplasty (Acute) RIGHT S/P arthroscopic synovectomy and manipulation: 05/10/2024 Medical History History of skin cancer Thoracic outlet syndrome GERD (gastroesophageal reflux disease) History of basal cell carcinoma Autoimmune hepatitis Seborrheic dermatitis Surgical History History of knee replacement Hx of colonoscopy Hx of section x2 1991, 1997 Social History Smoking/Tobacco Use Status: Never Smoking risk assessment performed?: Yes Alcohol Intake: current Alcohol Intake frequency: a few times a month Drug use: Never Substance use type: does not use Housing: house Do you feel safe at home: Yes Do you feel safe in your relationship?: Yes Meds Allergies and Home Medications Allergies Allergy/AdvReac Type Severity Reaction Status Date / Time corn Allergy skin Verified 05/10/24 08:15 irritation egg Allergy skin Verified 05/10/24 08:15 irritation Latex, Natural Rubber Allergy rash Verified 05/10/24 08:15 shellfish derived Allergy Hives Verified 05/10/24 08:15 spinach Allergy Other (See Verified 05/10/24 08:15 Comment) strawberry Allergy Hives Verified 05/10/24 08:15 green beans Allergy Other (See Uncoded 05/10/24 08:15 Comment) erythromycin AdvReac Severe Other (See Uncoded 05/10/24 08:15 Comment) trazodone AdvReac Intermediate irritabilit Uncoded 05/10/24 08:15 y Home Medications Medication Instructions Recorded Confirmed Type albuterol 90 mcg/actuation aerosol 90 mcg inhalation DIRECTED 11/26/22 05/05/24 History inhaler cetirizine 10 mg tablet 10 mg PO DAILY PRN 11/26/22 05/05/24 History cholecalciferol (vitamin D3) 50 50 mcg PO DAILY 11/26/22 05/05/24 History mcg (2,000 unit) capsule cyanocobalamin (vitamin B-12) 1,000 mcg PO DAILY 11/26/22 05/05/24 History 1,000 mcg tablet famotidine 20 mg tablet 20 mg PO DAILY 11/26/22 05/05/24 History losartan 100 mg tablet 100 mg PO DAILY 11/26/22 05/05/24 History triamterene 37.5 1 tab PO DAILY 11/26/22 05/05/24 History mg-hydrochlorothiazide 25 mg tablet multivitamin 1 tab PO DAILY 05/10/23 05/05/24 History acetaminophen 500 mg tablet 1,000 mg (2 x 500 mg) PO Q8H PRN 05/11/23 05/05/24 Rx pain #60 tabs diazepam 5 mg tablet 5 mg PO BID PRN muscle spasm #10 05/11/23 05/05/24 Rx tabs triamcinolone acetonide 0.1 % 1 applic topical BID PRN rash #30 06/05/23 05/05/24 Rx topical cream grams cephalexin 500 mg capsule 2,000 mg (4 x 500 mg) PO ONCE #4 09/24/23 05/05/24 Rx caps Exam Const General: cooperative, healthy appearing, comfortable and no acute distress Resp Auscultation: clear to auscultation bilaterally Cardio Rate: regular rate Rhythm: regular rhythm Results Last Vital Signs Temp 36.5 C 05/10/24 08:39 Pulse 83 05/10/24 08:39 Resp 16 05/10/24 08:39 BP 148/67 H 05/10/24 08:39 Pulse Ox 95 05/10/24 08:39
--- NOTE | 2024-05-10 10:23 | PDOC.DSDIS_ITS ---
Date of service: 05/10/24 Time of Service: 10:23 Discharge Plan Disposition Patient Disposition: Home Condition: Good Discharge Details Reason For Visit: R Knee arthroscopy Attending Provider: Franck Vora Primary Care Provider: Cindy Collins Home Meds and New Rx's Prescriptions: New hydrocodone-acetaminophen 5-325 mg tablet 1 tab PO Q6H PRN (Reason: pain) Qty: 6 0RF acetaminophen 500 mg tablet 1,000 mg PO TID Qty: 90 0RF ibuprofen 600 mg tablet 600 mg PO TID PRN (Reason: pain) Qty: 90 0RF Continued albuterol 90 mcg/actuation aerosol 90 mcg inhalation DIRECTED cetirizine 10 mg tablet 10 mg PO DAILY PRN cholecalciferol (vitamin D3) 50 mcg (2,000 unit) capsule 50 mcg PO DAILY cyanocobalamin (vitamin B-12) 1,000 mcg tablet 1,000 mcg PO DAILY famotidine 20 mg tablet 20 mg PO DAILY losartan 100 mg tablet 100 mg PO DAILY triamterene-hydrochlorothiazid 37.5-25 mg tablet 1 tab PO DAILY triamcinolone acetonide 0.1 % cream 1 applic topical BID PRN (Reason: rash) Qty: 30 0RF Rx Instructions: apply to affected area 2x daily x 7days cephalexin 500 mg capsule 2,000 mg PO ONCE Qty: 4 0RF Rx Instructions: Take 2 g of cephalexin 1 hour prior to dental procedure multivitamin Tablet 1 tab PO DAILY diazepam 5 mg tablet 5 mg PO BID PRN (Reason: muscle spasm) Qty: 10 0RF Discontinued acetaminophen 500 mg tablet 1,000 mg PO Q8H PRN Qty: 60 0RF Rx Instructions: Take two tablets up to every 8 hours as needed for pain Discharge Instructions Additional Instructions: Knee Manipulation Discharge Instructions Activity: You should begin moving as soon as possible. You may work on flexion but also equally maintain extension. You may bear weight as tolerated, using crutches only for support/comfort. You should apply ice to help with swelling and elevate when possible (especially in the first few days). Dressings: The knee dressing may come down after 72 hours. You may shower and get the wound wet at that time. You should keep the wounds covered with a bandaid until follow-up. Medications: - Rarely does this require any stronger pain medications. - Recommend to take up to 1000mg of Acetaminophen (Tylenol) and 600mg of Ibuprofen (Advil) every 8 hours as needed. These larger strength tablets were called in but you also may use [id number]. Follow-up: 7-10 days Stand Alone Forms: [facility]throsc[facility] Referrals: Franck Vora MD [ [facility] STAFF PHYSICIAN] - Equipment/Supplies: Partial Weight Bearing Crutches Activity:: Activity as Tolerated Remove Dressings/Wound Care:: 72 hours Shower/Bathe:: 72 hours Diet:: As Tolerated Discharge Orders Discharge Orders: Discharge Order (Routine); Ordered 05/10/24 Ordered By: Sadiq Chavis DS: Diagnosis Discharge Diagnosis (1) Arthrofibrosis of total knee arthroplasty: Status: Acute
[2024-05-10] MEDS: TRANEXAMIC ACID/SOD. CHL. 1,000 MG/100 ML BAG 600 MG IVPB (10:32)
[2024-05-10] MEDS: Bupivacaine 0.5% Pres-Free 30 ML VIAL (11:00)
[2024-05-10] MEDS: EPINEPHrine 10 MG/10 ML ML (11:00)
[2024-05-10] MEDS: fentaNYL 100 MCG/2 ML VIAL IVP (11:42)
--- NOTE | 2024-05-10 13:07 | W.ANESPOSTOP ---
Postoperative Evaluation Date, Time and Location Date Performed: 05/10/24 Time Performed: 12:40 Patient Location: Day Surgery Unit Vital Signs Most Recent Imported Vital Signs: Most Recent Vital Signs Temp Pulse Resp BP Pulse Ox 36.4 C L 68 16 122/75 96 05/10/24 12:36 05/10/24 12:36 05/10/24 12:36 05/10/24 12:36 05/10/24 12:36 Pain Score Most Recent Pain Score: Most Recent Pain Score Pain Level 2 05/10/24 12:36 Assessment Mental Status: Awake (Alert & Oriented to Patient Baseline) Airway and Respiratory Function: Patent airway with normal (patient baseline) respiratory exam Cardiovascular Function: Hemodynamically Stable Hydration Status: Adequately Hydrated Nausea & Vomiting: No Nausea or Vomiting Pain: Pain is tolerable per patient Peripheral Nerve Block: Patient did not receive a nerve block
[2024-05-10] MEDS: HYDROcodone 5/Acetaminophen 325 TAB PO (13:12)
--- NOTE | 2024-05-10 13:26 | W.PM.OP ---
Date of service: 05/10/24 Time of Service: 10:30 Operative Note Operative Note DATE OF PROCEDURE: 05/10/24 PRE-OP DIAGNOSIS: Arthrofibrosis of Knee Replacement -right knee POST-OP DIAGNOSIS: same PROCEDURE: Arthroscopic Synovectomy of 3 Compartments -right knee SURGEON: Franck Vora ANESTHESIA TYPE: General LMA/ETT Refer to Anesthesia Record ESTIMATED BLOOD LOSS: 5 PATHOLOGY: none sent COMPLICATIONS: None Patient was transported to: PACU Patient's condition: stable Indications: I have seen Martita in clinic for symptoms of arthrofibrosis of the knee following knee replacement surgery. Nonoperative measures were exhausted but disability due to lack of motion persisted. I discussed knee arthroscopy with synovectomy with the patient. I reviewed the risks of the procedure to include, but not limited to, bleeding, infection, pain, continued stiffness, recurrence, blood clot. Despite these risks, the patient elected to proceed. Findings: There were dense adhesions of the knee. There is notable thickness between the patella and the lateral soft tissues as well as between the anterior soft tissues and within the middle of the notch of the femur. These were resected throughout the knee and releasing the suprapatellar space as well. Procedure Description: Martita was greeted in the preoperative holding area where the correct side was identified and marked. The consent was reviewed with the patient and signed. The history and physical was updated. All questions were answered. She was taken back to the operating room. The patient was placed into the supine position on the operating room table. All bony prominences were well padded. Prophylactic antibiotics in the form of Cefazolin were administered. The right leg was then prepped with Chloraprep and draped in a standard fashion with stockinette and extremity drape. A timeout to confirm correct identity, side and site, procedure, allergies, anesthesia, and medical concerns was performed. The leg was placed into a pneumatic leg yi, [id number]. A standard lateral portal was made at the lateral border of the patella tendon in line with the inferior pole of the patella, soft spot. The skin and deep tissue was incised sharply and the blunt trochar was inserted atraumatically. At this point had visualization of the femoral component. A superolateral portal was then established with spinal needle localization just superior and lateral to the patella. A knife was taken down through the skin and soft tissue to enter the knee joint. Starting in the superior compartment above the femoral component and anterior to the femur I released all scarring between the anterior femoral synovium and the overlying extensor mechanism. This was taken through all of any noticeable scar tissue until the superior patellar pouch was fully released and mobile. This resection was carried out mostly with electrocautery as well as shaver. Once this was released fully from lateral to medial superiorly I then continue working down the lateral gutter. All scar tissue in the lateral gutter was released so there is normal space and movement between the capsular tissues and the edge of the femoral component and femur. There was dense scar tissue in this region which was debrided until the periphery of the patella but does not and some of the contraction of the lateral soft tissues was released. This was taken down through the lateral gutter such that I was able to identify the polyethylene to its posterior corner. Once again, all scar tissue in this area was resected so the polyethylene was easily visible and there is no interposed tissue in the back or the polyethylene was identified. I then continued to work anteriorly. To continue the synovectomy from the lateral compartment to the anterior compartment into the medial compartment, I placed a medial portal under spinal needle localization. Once this was in place it became another working portal and I continued the synovectomy through the anterior compartment to the medial compartment. Anteriorly, there was a dense band of tissue between the anterior soft tissues and within the middle of the femur, the notch. It was quite dense and was resected both with cautery and shaver. Once again, I freed up the medial gutter so I was able to visualize the polyethylene from the anterior posterior margins. There is no interposed tissue after full synovectomy was performed. Adhesions between the capsule and the femur were released. This was continued up the medial gutter until it met up with the releases performed previously in the superior compartment. Any remnant scar tissue from around the patella was then removed with a shaver and electrocautery. The arthroscope was brought back into the suprapatellar pouch and the leg was in full extension. The knee was thoroughly irrigated with the arthroscopic fluid on high flow and pressure. Inflow was stopped and excess fluid was removed. The wounds were closed with 4-0 Nylon. 0.25% ropivacaine was injected around the portal sites and into the knee. The wounds were dressed with Xeroform, 4x4 gauze, ABD pad, Kerlix and an EBEN wrap. A cryo-cuff was applied. The patient tolerated the procedure well and was returned to the Same Day Surgery area in a stable condition suffering no known complication..
== END 2024-05-10 13:35 | disposition home or self-care (01) ==
PROVIDERS: PCP Family Medicine; Visit Provider Student in an Organized Health Care Education/Training Program
PROC: (CPT 29870; principal; 2024-05-10 09:30)
DX: T84.82XA Fibrosis due to internal orthopedic prosthetic devices, implants and grafts, initial encounter (principal); Z96.651 Presence of right artificial knee joint
CPT/HCPCS: 29876; J0665; J0690; J1100; J2001; J2405; J2704; J3010